=== PATIENT | male | born 1990 | race Caucasian/White ===

== ENCOUNTER 2019-03-14 19:22 | Emergency (ER) | payer OTHER ==
[2019-03-14] MEDS ORDERED: OCTYL 2-CYANOACRYLATE 1 EACH TP ONE (19:49)
[2019-03-14] MEDS ORDERED: NAPROXEN 500 MG TABLET ONE (19:49)
== END 2019-03-14 20:54 | disposition home or self-care (01) ==
LOC: EDH 19:22
DX: S41.112A Laceration without foreign body of left upper arm, initial encounter (principal); S16.1XXA Strain of muscle, fascia and tendon at neck level, initial encounter; V49.49XA Driver injured in collision with other motor vehicles in traffic accident, initial encounter; Y93.89 Activity, other specified; Y92.410 Unspecified street and highway as the place of occurrence of the external cause; Y99.8 Other external cause status
CPT/HCPCS: 12031; 73060